=== PATIENT | female | born 1995 | race Caucasian/White ===

== ENCOUNTER 2020-04-28 17:24 | Emergency (ER) | payer OTHER ==
[~2020-04-28] VITALS: Ht 160 cm; Wt 54.9 kg
--- NOTE | 2020-04-28 17:47 | NUR ---
Dr Buckner at the bedside for MSE.
[2020-04-28 18:14] VITALS: BP 119/81
--- NOTE | 2020-04-28 18:14 | NUR ---
Patient discharged to home in stable condition. Written and verbal after care instructions given. Patient verbalizes understanding of instructions. Stressed follow up or return to ER for worsening s/s.
== END 2020-04-28 18:15 | disposition home or self-care (01) ==
LOC: ER 17:26
DX: S40.012A Contusion of left shoulder, initial encounter (principal); M25.512 Pain in left shoulder; V43.51XA Car driver injured in collision with sport utility vehicle in traffic accident, initial encounter; W22.11XA Striking against or struck by driver side automobile airbag, initial encounter; Y92.410 Unspecified street and highway as the place of occurrence of the external cause
CPT/HCPCS: 73030; A4663